=== PATIENT | male | born 1975 ===

== ENCOUNTER → 2018-09-13 | Outpatient (REF) ==
[2018-09-13 17:10] LABS: THYROID STIMULATING HORMONE 1.37 uIU/mL (0.465-4.680)
[2018-09-13 17:18] LABS: PSA-TOTAL 0.96 ng/mL (0-4)
== END ==
LOC: ZLAB.WCH 16:23
PROVIDERS: Physician Assistant
DX: Z01.89 Encounter for other specified special examinations (principal)
CPT/HCPCS: G0103